=== PATIENT | male | born 1950 | race Caucasian/White ===

== ENCOUNTER 2021-08-26 23:19 | Emergency (ER) | payer MEDICARE, OTHER, SELFPAY ==
[2021-08-26 23:22] VITALS: BP 172/89; PULSE 83; RESP 17; TEMP 36.4; O2SAT 96; BMI 29.5
[2021-08-26 23:27] VITALS: BP 172/89; PULSE 88; RESP 22; O2SAT 99
[2021-08-26 23:31] LABS: Glucose Point of Care 132 mg/dL (70-110)
--- NOTE | 2021-08-26 23:34 | CTR_ITS ---
PROCEDURE INFORMATION: Exam: CT Head Without Contrast Exam date and time: 08/27/2021 12:00 AM Age: 70 years old Clinical indication: Injury or trauma; Fall; Without residual foreign body; Head, generalized; Syncope and collapse; Patient HX: Patient had witnessed seizure from standing position. Fell and hit head on a table. Laceration to RT upper parietal. C/O headahce. TECHNIQUE: Imaging protocol: Computed tomography of the head without contrast. Radiation optimization: All CT scans at this facility use at least one of these dose optimization techniques: automated exposure control; mA and/or kV adjustment per patient size (includes targeted exams where dose is matched to clinical indication); or iterative reconstruction. COMPARISON: 1. MR Head w wo Contrast 2018-09-05 16:[address] head wo con* [id number] 2018-09-02 18:45 RADIATION DOSE METRICS: Total DLP (mGy-cm): 939.31 FINDINGS: Brain: Diffuse mild cerebral age related volume loss. Mild patchy low attenuation in the white matter compatible with mild chronic small vessel ischemic disease. No midline shift, mass, fluid collection, or evidence of hemorrhage. Cerebral ventricles: Ventricular enlargement proportional to volume loss. Paranasal sinuses: Mild scattered paranasal sinus mucosal thickening and secretions. Mastoid air cells: Visualized mastoid air cells are well aerated. Bones/joints: Unremarkable. No acute fracture. Soft tissues: Unremarkable. CT/CT head wo con* [id number] IMPRESSION: Mild involutional changes, no acute intracranial abnormality.
--- NOTE | 2021-08-26 23:34 | CTR_ITS ---
PROCEDURE INFORMATION: Exam: CT Cervical Spine Without Contrast Exam date and time: 08/27/2021 12:03 AM Age: 70 years old Clinical indication: Injury or trauma; Fall; Blunt trauma; Patient HX: Patient had witnessed seizure from standing position. Fell and hit head on a table. Laceration to RT upper parietal. C/O headahce. TECHNIQUE: Imaging protocol: Computed tomography of the cervical spine without contrast. Radiation optimization: All CT scans at this facility use at least one of these dose optimization techniques: automated exposure control; mA and/or kV adjustment per patient size (includes targeted exams where dose is matched to clinical indication); or iterative reconstruction. COMPARISON: 1. CT head wo con* [id number] 2021-08-27 00:00 2. MR Head w wo Contrast 2018-09-05 16:33 RADIATION DOSE METRICS: Total DLP (mGy-cm): 628.59 FINDINGS: Bones/joints: No acute fracture. Normal alignment. Discs/Spinal canal/Neural foramina: Diffuse degenerative disc space loss with degenerative disc osteophyte complexes, facet arthropathy, and ligamentum flavum thickening causes up to moderate spinal and foraminal stenosis greatest at C5-C7. Lungs: Lung apices are normal. Soft tissues: Unremarkable. CT/CT cervical spin wo con* [id number] IMPRESSION: No acute findings.
--- NOTE | 2021-08-26 23:34 | W.ED.SEIZURE ---
HPI - Seizure General: Chief Complaint: Seizure Stated Complaint: Seizure with head lac Time Seen by Provider: 08/26/21 23:26 Source: patient Mode of arrival: ambulatory Limitations: no limitations History of Present Illness: HPI Narrative: 70-year-old male who states that he got up at 930 states that she witnessed him have a seizure. She states that he fell over and hit his head on a table and had what appeared to be a tonic-clonic seizure. He had altered male status roughly 10 minutes after the seizure he is now awake and alert his only complaint currently is a headache. He states that he has had 3 other witnessed seizures but is never seen anyone for him last one was 4 months ago. He denies any chest pain denies any vomiting or diarrhea. Patient also states he is having low back pain from his fall Associated symptoms: Deny chest pain, chills or fever(s) Review of Systems Const: Denies: fever(s), chills, body aches or change in appetite Eyes: Denies: blurry vision or eye discomfort ENMT: Denies: throat pain or dental pain Card: Denies: chest pain Resp: Denies: dyspnea GI: Denies: abdominal pain, nausea, vomiting or diarrhea : Denies: dysuria Musc: Denies: neck pain or back pain Skin/Breast: Denies: rash Neuro: Reports: headache(s) and seizure-like activity Psych: Denies: depression Marvin/Lymph: Denies: easy bruising All/Imm: Denies: urticaria PFSH ED PFSH: Medical History (Updated 08/27/21 @ 01:59 by Valentine Rosenbaum MD) Asthma Social History (Updated 08/26/21 @ 23:36 by Valentine Rosenbaum MD) Substance/Drug Use: never Physical Exam Const: COMMON NORMALS: no acute distress, patient oriented x3 and healthy appearing HENMT: COMMON NORMALS: normocephalic; head/scalp not atraumatic (7 cm laceration to posterior scalp) HEAD & SCALP: normocephalic; not atraumatic (7 cm laceration to posterior scalp) Eye: COMMON NORMALS: Equal, round and reactive pupils present and EOMs intact bilaterally PUPIL: Yes Equal, round and reactive pupils present Neck/C-Spine: COMMON NORMALS: full ROM and supple Chest: COMMONS NORMALS: normal inspection of the chest and normal palpation of entire chest wall Resp: COMMON NORMALS: normal respiratory effort, No retractions, No use of accessory muscles and clear to auscultation bilaterally AUSCULTATION: clear to auscultation bilaterally Cardio: COMMON NORMALS: regular rate, regular rhythm and No murmurs present (Cardio) RATE: regular rate RHYTHM: regular rhythm GI: COMMON NORMALS: Normal to inspection, nondistended, normoactive bowel sounds present, Soft to palpation, non-tender and no masses PALPATION: Yes Soft to palpation Back/Pelvis: OTHER: Tenderness along L-spine Extremity: COMMON NORMALS: normal to inspection and full ROM Neuro: COMMON NORMALS: patient oriented x3, moves all extremities and no focal motor deficits Psych: COMMON NORMALS: mental status grossly normal, Normal thought process present and cooperative THOUGHT PROCESS: Normal thought process present Skin: COMMON NORMALS: no rashes or lesions noted and no wounds GENERAL SKIN EXAM: no rashes or lesions noted Procedures Laceration Laceration 1: Site: scalp Size (cm): 7 Description: linear and clean Depth: simple, single layer Local Anesthetic: lidocaine 1% Amount of anesthesia used (mL): 14 Pre-repair: wound explored and irrigated extensively Skin layer closed with: other (9 dianna) Course Vital Signs: Vital signs: Vital Signs Temperature 97.6 F 08/26/21 23:22 Pulse Rate 83 08/26/21 23:22 Respiratory Rate 17 08/26/21 23:22 Blood Pressure 172/89 08/26/21 23:22 Pulse Oximetry 96 08/26/21 23:22 MDM - Seizure MDM Narrative Medical decision making narrative: Patient presents here with a likely seizure with head laceration head laceration repaired with dianna he is return in 7 days for staple removal we will start him on Keppra as he had multiple seizures in the past getting follow-up with neurology. He also has a likely L1 and L2 compression fracture no neuro signs we will place him in a brace and have him follow-up with orthopedics. Lab Data Result diagrams: 08/27/21 00:25 08/27/21 00:25 Labs: Radiology Impressions Cervical Spine CT 08/26/21 23:34 IMPRESSION: No acute findings. Head CT 08/26/21 23:34 IMPRESSION: Mild involutional changes, no acute intracranial abnormality. Lumbar Spine X-Ray 08/27/21 01:05 IMPRESSION: 1. Mild dextroconvex lumbar curvature. 2. Age-indeterminate mild L1, L2, and L5 vertebral body height loss, correlate for point tenderness. Thoracic Spine X-Ray 08/27/21 01:05 IMPRESSION: No acute vertebral fracture/subluxation. Laboratory Results WBC 4.3 10^3/uL (4.0-10.0) 08/27/21 00:25 RBC 3.95 10^6/uL (4.1-5.3) L 08/27/21 00:25 Hgb 12.6 g/dL (11.7-16.6) 08/27/21 00:25 Hct 37.5 % (42.0-52.0) L 08/27/21 00:25 MCV 94.9 fl (80-94) H 08/27/21 00:25 MCH 31.9 pg (28.0-34.0) 08/27/21 00:25 MCHC 33.6 g/dL (30.0-36.0) 08/27/21 00:25 RDW 12.9 % (12.1-15.1) 08/27/21 00:25 Plt Count 269 10^3/cmm (130-400) 08/27/21 00:25 MPV 9.9 fL (7.4-10.4) 08/27/21 00:25 Neut % (Auto) 48.0 % 08/27/21 00:25 Lymph % (Auto) 33.3 % 08/27/21 00:25 Overton % (Auto) 18.3 % 08/27/21 00:25 Eos % (Auto) 0.0 % 08/27/21 00:25 Baso % (Auto) 0.2 % 08/27/21 00:25 Neut # (Auto) 2.05 10^3/uL (1.8-7.7) 08/27/21 00:25 Lymph # (Auto) 1.4 10^3/uL (0.8-4.8) 08/27/21 00:25 Overton # (Auto) 0.8 10^3/uL (0.2-0.9) 08/27/21 00:25 Eos # (Auto) 0.0 10^3/uL (0.0-0.8) 08/27/21 00:25 Baso # (Auto) 0.0 10^3/uL (0.0-0.1) 08/27/21 00:25 Nucleated RBC % (auto) 0 % 08/27/21 00:25 Nucleated RBCs # 0.0 /100WBC 08/27/21 00:25 Sodium 144 mmol/L (136-145) 08/27/21 00:25 Potassium 3.5 mmol/L (3.5-5.1) 08/27/21 00:25 Chloride 106 mmol/L (98-107) 08/27/21 00:25 Carbon Dioxide 28 mmol/L (22-29) 08/27/21 00:25 Anion Gap 13.5 (5-19) 08/27/21 00:25 BUN 6 mg/dL (8-23) L 08/27/21 00:25 Creatinine 0.8 mg/dL (0.7-1.2) 08/27/21 00:25 GFR Calculation 95.6 mL/min (90-130) 08/27/21 00:25 Glucose 101 mg/dL (65-115) 08/27/21 00:25 POC Glucose 132 mg/dL (70-110) H 08/26/21 23:28 Calculated Osmolality 296 mOsm/kg (285-295) H 08/27/21 00:25 Calcium 9.1 mg/dL (8.5-10.5) 08/27/21 00:25 Total Bilirubin 0.2 mg/dL (0.15-1.2) 08/27/21 00:25 AST 26 U/L (0-40) 08/27/21 00:25 ALT 24 U/L (0-41) 08/27/21 00:25 Alkaline Phosphatase 88 IU/L (40-130) 08/27/21 00:25 Total Protein 6.8 g/dL (6.6-8.7) 08/27/21 00:25 Albumin 4.1 g/dL (3.5-5.2) 08/27/21 00:25 Globulin 2.7 g/dL (1.3-4.6) 08/27/21 00:25 EKG Data EKG 1: Attestation: I personally reviewed and interpreted this EKG as follows: EKG interpretation date: 08/26/21 EKG interpretation time: 23:29 Interpretation: nsr hr [address] or t wave abnormalities qrs 101 qtc 409 Discharge Plan Discharge Patient Disposition: Home Clinical Impression: Generalized seizure, Laceration of head Compression fx, lumbar spine Qualifiers: Encounter type: initial encounter Lumbar vertebra fracture level: L2 Qualified Code(s): S32.020A - Wedge compression fracture of second lumbar vertebra, initial encounter for closed fracture Prescriptions: New Keppra 500 mg tablet 500 mg PO BID Qty: 60 0RF hydrocodone-acetaminophen 5-325 mg tablet 1 tab PO Q6H PRN (Reason: pain) Qty: 14 0RF Discharge Orders: Discharge ED (Routine); Ordered 08/27/21 Ordered By: Valentine Rosenbaum Referrals: Anna Andino MD [Physician] - 1-3 days Pastor Lal DO [Physician] - 1-3 days Discharge Diet: Advance as tolerated Discharge Activity: Resume usual activity Patient Instructions: Laceration (ED), Thoracolumbar Fracture (ED), Recurrent Seizures in Adults (ED) Activity Restrictions/Additional Instructions: staple removal in 7 days Coding Level of Care Code ED Ultrasonic Hand Solderer for Chg Fwd Exam Comprehensive
[2021-08-27 00:28] LABS: Basophils % 0.2 %; Hematocrit 37.5 % (42.0-52.0); Hemoglobin 12.6 g/dL (11.7-16.6); Lymphocytes # 1.4 10^3/uL (0.8-4.8); Lymphocytes % 33.3 %; Mean Corpuscular HGB Conc 33.6 g/dL (30.0-36.0); Mean Corpuscular Hemoglobin 31.9 pg (28.0-34.0); Mean Corpuscular Volume 94.9 fl (80-94); Mean Platelet Volume 9.9 fL (7.4-10.4); Monocytes # 0.8 10^3/uL (0.2-0.9); Monocytes % 18.3 %; Neutrophils # 2.05 10^3/uL (1.8-7.7); Nucleated Red Blood Cells % 0 %; Platelet Count 269 10^3/cmm (130-400); Red Blood Count 3.95 10^6/uL (4.1-5.3); Red Cell Distribution Width 12.9 % (12.1-15.1); White Blood Count 4.3 10^3/uL (4.0-10.0)
[2021-08-27] MEDS: HYDROcodone-acetaminophen 5-325 mg Tablet 1 TAB PO (00:41)
[2021-08-27] MEDS: lidocaine 1% INJ 20 mL INJECTION (00:42)
[2021-08-27 00:52] LABS: Alanine Aminotransferase 24 U/L (0-41); Albumin Level 4.1 g/dL (3.5-5.2); Alkaline Phosphatase 88 IU/L (40-130); Anion Gap 13.5 (5-19); Aspartate Amino Transferase 26 U/L (0-40); Blood Urea Nitrogen 6 mg/dL (8-23); Calcium 9.1 mg/dL (8.5-10.5); Carbon Dioxide 28 mmol/L (22-29); Chloride 106 mmol/L (98-107); Creatinine Clr Calc Pharmacy 95.6511; Globulin 2.7 g/dL (1.3-4.6); Glomerular Filtration Rate 95.6 mL/min (90-130); Glucose 101 mg/dL (65-115); Osmolality Calculated 296 mOsm/kg (285-295); Potassium 3.5 mmol/L (3.5-5.1); Sodium 144 mmol/L (136-145); Total Bilirubin 0.2 mg/dL (0.15-1.2); Total Protein 6.8 g/dL (6.6-8.7)
--- NOTE | 2021-08-27 01:05 | XRR_ITS ---
PROCEDURE INFORMATION: Exam: XR Lumbosacral Spine Exam date and time: 08/27/2021 1:18 AM Age: 70 years old Clinical indication: Injury or trauma; Blunt trauma (contusions or hematomas); Patient HX: C/O back pain from falling due to seizure. ; Additional info: Fall TECHNIQUE: Imaging protocol: Radiologic exam of the lumbosacral spine. Views: 2 or 3 views. COMPARISON: No relevant prior studies available. FINDINGS: Bones/joints: Mild dextroconvex lumbar curvature. Age-indeterminate mild L1, L2, and L5 vertebral body height loss, correlate for point tenderness. Maintained vertebral alignments. Soft tissues: Unremarkable. XR/XR lumbar spine 2-3V* [id number] IMPRESSION: 1. Mild dextroconvex lumbar curvature. 2. Age-indeterminate mild L1, L2, and L5 vertebral body height loss, correlate for point tenderness.
--- NOTE | 2021-08-27 01:05 | XRR_ITS ---
PROCEDURE INFORMATION: Exam: XR Thoracic Spine Exam date and time: 08/27/2021 1:18 AM Age: 70 years old Clinical indication: Injury or trauma; Blunt trauma (contusions or hematomas); Patient HX: C/O back pain from falling due to seizure. ; Additional info: Fall TECHNIQUE: Imaging protocol: Radiologic exam of the thoracic spine. Views: 3 views. COMPARISON: 1. CT cervical spin wo con* [id number] 2021-08-27 00:03 2. CR Chest 1 [place] [id number] 2018-09-06 12:39 3. CR Chest 1 [place] [id number] 2018-09-02 18:54 FINDINGS: Bones/joints: Mildly exaggerated thoracic kyphosis with normal heights and alignments. No acute vertebral fracture/subluxation. Mild degenerative joint disease. Soft tissues: Unremarkable. XR/XR thoracic spine 3V* [id number] IMPRESSION: No acute vertebral fracture/subluxation.
[2021-08-27] MEDS: morphine 4 mg/mL SDV 1 mL IVP (01:09)
[2021-08-27] MEDS: ondansetron 2 mg/ML SDV 2 mL 4 MG IVP (01:09)
[2021-08-27 01:14] VITALS: BP 169/90; PULSE 75; RESP 20; O2SAT 94
[2021-08-27 02:00] VITALS: BP 151/108; PULSE 69; RESP 19; O2SAT 95
--- NOTE | 2021-08-27 04:58 | PC.NURSE ---
Patient sent home with [facility] per MD order.
--- NOTE | 2021-09-01 10:16 | DCPLANNER ---
Addendum entered by Adenike Melchor 09/22/21 12:20: Patient had a follow up appointment for 09.04.[address] Lal at ortho - patient did not attend appointment. Original Note: manager validation had message to schedule a follow up appointment for patient with Dr. Lal at ortho. manager validation sent patients information to the front office staff at ortho. Patients information will be printed and reviewed. Clinic will call patient with appointment information.
--- NOTE | 2021-09-02 09:31 | DCPLANNER ---
Addendum entered by Adenike Melchor 10/02/21 10:31: Patient had a follow up appointment scheduled with neurology - patient did not attend appointment. Addendum entered by Adenike Melchor 09/22/21 14:22: Patient has a follow up appointment scheduled for August, at 11:00 with Ho Gutierrez at neurology. Clinic will contact patient with appointment information. Original Note: manager material had message to schedule a follow up appointment for patient with neurology. manager material sent patients information to the front office staff at neurology. Patients information will be printed and reviewed. Clinic will call patient with appointment information.
== END 2021-08-27 02:50 | disposition home or self-care (01) ==
PROVIDERS: Emergency Provider Emergency Medicine
DX: G40.409 Other generalized epilepsy and epileptic syndromes, not intractable, without status epilepticus (principal); S32.020A Wedge compression fracture of second lumbar vertebra, initial encounter for closed fracture; S01.01XA Laceration without foreign body of scalp, initial encounter; W18.39XA Other fall on same level, initial encounter
CPT/HCPCS: 12002; 36416; 70450; 72072; 72100; 72125; 80053; 82962; 85025; 96374; 96375; 99284; J2270; J2405; L0456